=== PATIENT | male | born 1960 | race Caucasian/White ===

== ENCOUNTER 2016-10-09 16:43 | Emergency (ER) | payer OTHER ==
[~2016-10-09 16:43] MED LIST: CHLO25CA PO; Z.0.NO CURRENT MEDS
[2016-10-09 16:48] VITALS: BP 157/85; PULSE 72; RESP 16; TEMP 99.5; O2SAT 98
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
[2016-10-09] MEDS ORDERED: ROBA500T PO (20:30)
[2016-10-09] MEDS ORDERED: CEPH-460 PO (21:03)
== END 2016-10-09 21:19 | disposition home or self-care (01) ==
LOC: PHEFT 16:43
DX: S91.011A Laceration without foreign body, right ankle, initial encounter (principal); S39.012A Strain of muscle, fascia and tendon of lower back, initial encounter; V19.40XA Pedal cycle driver injured in collision with unspecified motor vehicles in traffic accident, initial encounter; Y93.55 Activity, bike riding; Y92.410 Unspecified street and highway as the place of occurrence of the external cause
CPT/HCPCS: 12002; 72110; 73590; 73630; 99284; L1830